=== PATIENT | male | born 1950 | race Caucasian/White ===

== ENCOUNTER 2016-12-03 08:58 | Emergency (ER) | payer OTHER, MEDICARE ==
[~2016-12-03] VITALS: Ht 190.5 cm; Wt 101.3 kg
[~2016-12-03 08:58] MED LIST: PREDNISONE50 MG PO
[2016-12-03 09:01] VITALS: BP 170/101
[2016-12-03] MEDS ORDERED: MOTRIN800 MG PO (11:51)
== END 2016-12-03 11:56 | disposition home or self-care (01) ==
LOC: EME 08:58
PROC: 3E0234Z Introduction of Serum, Toxoid and Vaccine into Muscle, Percutaneous Approach (ICD-10-PCS; principal; 2016-12-03)
DX: S00.83XA Contusion of other part of head, initial encounter (principal); S00.212A Abrasion of left eyelid and periocular area, initial encounter; Z23 Encounter for immunization; W01.198A Fall on same level from slipping, tripping and stumbling with subsequent striking against other object, initial encounter; Y93.01 Activity, walking, marching and hiking; Z88.0 Allergy status to penicillin
CPT/HCPCS: 70450; 70486; 99281; 99284

== ENCOUNTER 2017-10-19 05:00 | Emergency (ER) | payer OTHER, MEDICARE ==
[~2017-10-19] VITALS: Ht 190.5 cm; Wt 103.3 kg
[~2017-10-19 05:00] MED LIST changes: +MOTRIN800 MG PO
[2017-10-19 05:25] LABS: HEMATOCRIT 43.1 % (38.0-50.0); HEMOGLOBIN 15.3 G/DL (12.5-16.6); MCH 33.9 PG (29.0-34.0); MCHC 35.5 G/DL (30.0-36.0); MCV 95.6 FL (86-99); PLATELET COUNT 213 K/uL (156-360); RBC DIS.WIDTH-CV 11.7 % (11.8-14.6); RBC DIS.WIDTH-SD 40.6 % (39-53); RED BLOOD COUNT 4.51 M/uL (4.00-5.50)
[2017-10-19 05:33] LABS: ALBUMIN 4.1 g/dL (3.2-4.8); CHLORIDE 105 mEq/L (99-109); POTASSIUM 3.8 mEq/L (3.7-5.4); SODIUM 139 mEq/L (136-147)
[2017-10-19 05:36] LABS: GLUCOSE 103 mg/dL (70-99); TOTAL PROTEIN 6.8 g/dL (6.4-8.3)
[2017-10-19 05:38] LABS: TOTAL BILIRUBIN 0.6 mg/dL (0.0-1.0)
[2017-10-19 05:39] LABS: ALKALINE PHOSPHATASE 66 IU/L (3-129); CREATININE 1.1 mg/dL (0.6-1.3); GFR ESTIMATE (CALCULATED) > 59 mL/min/ (58.99-99999)
[2017-10-19 05:40] LABS: UREA NITROGEN (BUN) 17 mg/dL (9-23)
[2017-10-19 05:41] LABS: AST (GOT) 32 IU/L (2-34)
[2017-10-19 05:42] LABS: ALT (GPT) 32 IU/L (3-49)
[2017-10-19 05:43] LABS: LIPASE 33 U/L (1.0-51.0)
[2017-10-19 05:48] LABS: TROP-I INTERPRETATION NEGATIVE; TROPONIN-I 0.02 ng/mL (0.0-0.30)
[2017-10-19] MEDS ORDERED: PROTONIX40 MG PO (06:50)
[2017-10-19] MEDS ORDERED: CARAFATE1 GM PO (06:50)
[2017-10-19 08:28] LABS: TROP-I INTERPRETATION NEGATIVE; TROPONIN-I 0.01 ng/mL (0.0-0.30)
[2017-10-19 09:09] VITALS: BP 138/90
== END 2017-10-19 09:13 | disposition home or self-care (01) ==
LOC: EME 05:00
PROVIDERS: Emergency Medicine
DX: R10.13 Epigastric pain (principal); R07.9 Chest pain, unspecified; K21.9 Gastro-esophageal reflux disease without esophagitis; I10 Essential (primary) hypertension; E78.5 Hyperlipidemia, unspecified; Z87.891 Personal history of nicotine dependence; Z88.0 Allergy status to penicillin
CPT/HCPCS: 71046; 80053; 83690; 84484; 85027; 93005; 99281; 99285; J7030